=== PATIENT | female | born 1990 | race African-American/Black ===

== ENCOUNTER 2019-08-31 08:25 | Emergency (ER) | payer MEDICARE, MEDICAID ==
[~2019-08-31] VITALS: Ht 170.2 cm; Wt 132.0 kg
[2019-08-31 08:33] VITALS: BP 157/95
--- NOTE | 2019-08-31 09:10 | NUR ---
COUGH ALL-OVER BODYACHES AND SCIATIC PAIN. PT HAS WAVES OF ALL-OVER BODY SPASM TYPE PAIN. SYMPTOMS STARTED SATURDAY
[2019-08-31 09:15] LABS: MEAN CORPUSCULAR HEMOGLOBIN 28.4 pg (27.0-34.8); MEAN CORPUSCULAR HGB CONC 32.8 g/dL (32.4-35.8); MEAN CORPUSCULAR VOLUME 86.7 fL (80-100); MEAN PLATELET VOLUME 10.2 fL (7.4-10.4); PLATELET COUNT 210 x10^3/uL (130-400); RED BLOOD COUNT 5.11 x10^6/uL (3.82-5.3); RED CELL DISTRIBUTION WIDTH 14.6 % (9.6-15.2)
[2019-08-31 09:18] LABS: ALBUMIN 3.6 g/dL (3.4-5.0); ANION GAP 5 mmol/L (5-15); CALCIUM 8.7 mg/dL (8.5-10.1); CHLORIDE 113 mmol/L (98-107); CREATININE 0.98 mg/dL (0.55-1.02)
[2019-08-31 09:21] LABS: MD YES
[2019-08-31 09:41] LABS: RAPID INFLUENZA A Negative (Negative); RAPID INFLUENZA B Negative (Negative)
[2019-08-31] MEDS ORDERED: IBUPROFEN 600 MG TABLET ONE (09:46)
[2019-08-31 09:51] LABS: BAND#(MANUAL) 0.05 x10^3/uL; BANDS%(MANUAL) 1 % (0-7); LYMPHS% (MANUAL) 22 % (22-44); MONOS#(MANUAL) 0.75 x10^3/uL (0.3-2.7); MONOS% (MANUAL) 15 % (2-9); SEGS% (MANUAL) 62 % (42-75)
[2019-08-31 09:52] LABS: <PLATELET ESTIMATE> ADEQUATE; <PLT MORPHOLOGY> NORMAL PLT MORPH; <RBC MORPHOLOGY> NORMAL
[2019-08-31] MEDS ORDERED: IBUPROFEN 600 MG TABLET PO ONE (10:00)
[2019-08-31 10:09] LABS: MICROSCOPIC NOT IND
[2019-08-31 10:14] LABS: CULTURE INDICATED? NO
--- NOTE | 2019-08-31 10:30 | NUR ---
PT STATES SHE CONTINUES TO HAVE BODYACHES DESPITE MEDICATION. AWAITING RE-EVAL BY
== END 2019-08-31 11:13 ==
LOC: ED 11:00
DX: B34.9 Viral infection, unspecified (principal); R42 Dizziness and giddiness
CPT/HCPCS: 36415; 71045; 80048; 81003; 82040; 84703; 85025; 87400; 93005; 99284